=== PATIENT | male | born 1970 | race Caucasian/White ===

== ENCOUNTER 2018-02-02 06:53 | Emergency (ER) | payer OTHER ==
[~2018-02-02] VITALS: Ht 185.4 cm; Wt 63.5 kg
[~2018-02-02 06:53] MED LIST: ASPIR 8181 MG PO; ATORVASTATIN CA40 MG PO; CARVEDILOL3.125 MG PO; EFFIENT10 MG PO; LISINOPRIL2.5 MG PO; NICOTINE TRANSD21 M1 TRANSDERM; NITROSTAT0.4 M1 SL
[2018-02-02 08:14] VITALS: BP 125/80
== END 2018-02-02 08:15 | disposition home or self-care (01) ==
LOC: M.ERS 06:53
DX: S61.216A Laceration without foreign body of right little finger without damage to nail, initial encounter (principal); F17.210 Nicotine dependence, cigarettes, uncomplicated; W23.0XXA Caught, crushed, jammed, or pinched between moving objects, initial encounter; Y93.89 Activity, other specified; Y92.89 Other specified places as the place of occurrence of the external cause; Y99.8 Other external cause status

== ENCOUNTER 2018-05-02 13:44 | Inpatient (IN) | payer OTHER ==
[~2018-05-02] VITALS: Ht 185.4 cm; Wt 63.0 kg
[2018-05-02 13:48] VITALS: BP 118/77
[2018-05-02 14:26] LABS: ABSOLUTE BASOPHILS 0.1 thou/uL (0.0-0.2); ABSOLUTE EOSINOPHILS 0.1 thou/uL (0.0-0.7); ABSOLUTE LYMPHOCYTES 2.5 thou/uL (0.8-5.3); ABSOLUTE MONOCYTES 0.8 thou/uL (0.0-1.2); ABSOLUTE NEUTROPHILS 5.5 thou/uL (1.6-8.1); BASOPHILS 1.2 %; EOSINOPHILS 1.4 %; HEMATOCRIT 44.5 % (42.0-52.0); HEMOGLOBIN 15.1 gm/dL (14.0-18.0); LYMPHOCYTES 27.4 %; MCH 32.7 pg (26.0-34.0); MCV 96.1 fL (80.0-100.0); MONOCYTES 9.1 %; MPV 8.5 fl. (7.2-11.1); NUCLEATED RBCS 0 /100WBC; PLATELET COUNT* 194 thou/uL (150-400); POLYS 60.9 %; RBC 4.63 mil/uL (4.50-6.00); RDW-CV 14.2 % (10.5-14.5)
[2018-05-02 14:32] LABS: URINE BILIRUBIN NEGATIVE (Negative); URINE BLOOD NEGATIVE (Negative); URINE CLARITY CLEAR; URINE COLOR YELLOW; URINE GLUCOSE-RANDOM NEGATIVE (Negative); URINE KETONES NEGATIVE (Negative); URINE LEUKOCYTES-REFLEX NEGATIVE (Negative); URINE NITRITE-REFLEX NEGATIVE (Negative); URINE PROTEIN NEGATIVE (Negative); URINE SPECIFIC GRAVITY >= 1.030 (1.005-1.030); URINE UROBILINOGEN 0.2 E.U./dl (0.2-1.0)
[2018-05-02 14:36] LABS: CALCIUM 8.9 mg/dL (8.5-10.1); CREATININE 0.9 mg/dL (0.6-1.3); POTASSIUM 3.6 mmol/L (3.5-5.1)
[2018-05-02 14:47] LABS: ALBUMIN 4.1 g/dL (3.4-5.0); TOTAL BILIRUBIN 0.4 mg/dL (<0.1-1.0); TOTAL PROTEIN 7.9 g/dL (6.4-8.2); TROPONIN-I LEVEL 0.1 ng/mL (<0.06)
--- NOTE | 2018-05-02 18:14 | NUR ---
PT IS EATING DINNER TRAY
[2018-05-02 22:40] VITALS: BP 103/65
[2018-05-02 22:52] VITALS: BP 108/66
[2018-05-03] VITALS (12 sets, daily range): BP systolic 91–1100; BP diastolic 56–76
--- NOTE | 2018-05-03 07:49 | NUR ---
PT ADMITTED TO ROOM 207 DURING THIS SHIFT; VSS, A+OX4, REPORTS ABD PAIN, SKIN INTACT, UP AD NATHALIA. HE IS ABLE TO COMMUNICATE HIS NEEDS TO STAFF EFFECTIVELY. CURRENT PAIN MEDICATION REGIMEN HAS BEEN ADEQUATE FOR CONTROLLING HIS PAIN SOME OF THE TIME; MD WAS PAGED AND ORDERS RECEIVED. HE HAS BEEN NPO SINCE MIDNIGHT FOR A CARDIOLOGY CONSULT TODAY.
[2018-05-03 10:01] LABS: ANION GAP 7 mmol/L (7-16); BUN 13 mg/dL (7-18); CALCIUM 8.3 mg/dL (8.5-10.1); CHLORIDE 104 mmol/L (98-107); CHOLESTEROL 153 mg/dL (<200); CO2 27 mmol/L (21-32); CREATININE 0.8 mg/dL (0.6-1.3); GLUCOSE 86 mg/dL (70-99); HDL CHOLESTEROL 57 mg/dL (>40); LDL CHOLESTEROL 87 mg/dL (<100); SODIUM 138 mmol/L (136-145); TC:HDL 2.7 Ratio (Not establshd); TRIGLYCERIDE 47 mg/dL (<150); VLDL 9 mg/dL (<40)
[2018-05-03 10:02] LABS: SERUM ASSESSMENT Clear
--- NOTE | 2018-05-03 11:20 | EKG ---
[place] [address] ELECTROCARDIOGRAM REPORT Name: JIM VENCES Room: [address] ADM IN .R.#: [id number] Admission: 05/02/18 Attend Phys: Mady Wong Discharge: Date of : 66 Report #: [id number] THIS REPORT FOR: //name// [facility] ED Test Date: 2018-05-02 Test Time: 14:28:13 Pat Name: JIM VENCES Department: Room: [facility] Gender: M Locks Inspector: TAYLA : 1970 Requested By: Francie Cantu Order Number: [id number] MD: Simon Hagen Measurements Intervals [place] Rate: 75 P: 79 IA: 141 QRS: 26 QRSD: 114 T: 46 QT: 394 QTc: 441 Interpretive Statements Sinus rhythm Probable left atrial enlargement Borderline intraventricular conduction delay RSR' in V1 or V2, right VCD or RVH Borderline ST elevation, anterior leads Compared to ECG 02/09/2017 07:50:53 Right ventricular hypertrophy now present Sinus bradycardia no longer present ST (T wave) deviation still present Electronically Signed On 05-03-2018 11:20:49 CNA PER DIEM by Simon Hagen [email or web address] <ELECTRONICALLY SIGNED> By: Simon Hagen MD, [facility] 05/03/18 1120 1428 1428 Simon Hagen MD, FAC /EPI
--- NOTE | 2018-05-03 11:21 | EKG ---
[place] [address] ELECTROCARDIOGRAM REPORT Name: JIM VENCES Room: [address] ADM IN .R.#: [id number] Admission: 05/02/18 Attend Phys: Mady Wong Discharge: Date of : 66 Report #: [id number] THIS REPORT FOR: //name// [facility] ED Test Date: 2018-05-02 Test Time: 16:56:57 Pat Name: JIM VENCES Department: Room: [facility] Gender: Compression Molding Machine Operator: Rodolfo [place] : 1970 Requested By: Francie Cantu Order Number: [id number] MD: Simon Hagen Measurements Intervals [place] Rate: 52 P: 73 [place]: 143 QRS: 33 QRSD: 111 T: 24 QT: 429 QTc: 399 Interpretive Statements Sinus rhythm RSR' in V1 or V2, right VCD or RVH Borderline ST elevation, anterior leads Compared to ECG 02/09/2017 07:50:53 Right ventricular hypertrophy now present Sinus bradycardia no longer present ST (T wave) deviation still present Electronically Signed On 05-03-2018 11:21:23 BELT WORKER by Simon Hagen [email or web address] <ELECTRONICALLY SIGNED> By: Simon Hagen MD, [facility] 05/03/18 1121 1656 1656 Simon Hagen MD, FAC /EPI
--- NOTE | 2018-05-03 11:22 | EKG ---
[place] [address] ELECTROCARDIOGRAM REPORT Name: JIM VENCES Room: [address] ADM IN M.R.#: [id number] Admission: 05/02/18 Attend Phys: Mady Wong Discharge: Date of : 66 Report #: [id number] THIS REPORT FOR: //name// [facility] Test Date: 2018-05-03 Test Time: 08:20:38 Pat Name: JIM VENCES Department: Room: [address] Gender: M Veterinary Anatomist: : 1970 Requested By: Melissa Grimaldo Order Number: [id number] [place] MD: Simon Hagen Measurements Intervals [place] Rate: 54 P: 71 AR: 142 QRS: 20 QRSD: 109 T: -15 QT: 477 QTc: 453 Interpretive Statements Sinus rhythm RSR' in V1 or V2, probably normal variant Borderline T abnormalities, inferior leads ST elev, probable normal early repol pattern Compared to ECG 02/09/2017 07:50:53 T-wave abnormality now present Sinus bradycardia no longer present ST (T wave) deviation still present Electronically Signed On 05-03-2018 11:22:08 SUPERVISOR INSTRUMENT MECHANICS by Simon Hagen [email or web address] <ELECTRONICALLY SIGNED> By: Simon Hagen MD, [facility] 05/03/18 1122 9 9 Simon Hagen MD, FACC /EPI
--- NOTE | 2018-05-03 13:27 | NUR ---
Pt out of room for cath, will f/u later
--- NOTE | 2018-05-03 14:00 | NUR ---
Nutrition: Consult for low body wt. Pt weighs 139#, BMI 18.4. Usual wt, per [employer], is 145#. H/o OK. Albumin 4.1. Not a lot of info on pt, and pt was not in room at time of attempted visit, 13:30. Pt was eating well prior to NPO status. Recommend andvancing to goal of heart healthy diet once pt is clinically able. Will follow for diet advancement, po intake, wt, labs, possible need for supplement, 05/05/18.
--- NOTE | 2018-05-03 20:08 | NUR ---
ASSUMED PT CARE [id number], FULL ASSESMENT DONE CHARTED. PT A/O X4, C/O CHEST/ABDOMEN PAIN, PT WENT FOR CATH THIS AM, RETURNED TO ROOM 207 AT APPROX 1645. PT HAS RADIAL CLOSURE DEVISE TO RIGHT WRIST AND CLOSURE DEVICE TO RIGHT GROIN. PT WAS INSTRUCTED TO LAY FLAT FOR AN HOUR, VS OBTAINED, SB ON THE MONITOR. PTS WRIST PRESSURE DECRESASED AT APPROX 1855 6 CC'S HAD BED REMOVED, AT APPROX 1915 PT REPORTED BLEEDING FROM WRIST, 6 CC'S AIR REPLACED AND PT EDUCATED TO KEEP ARM STILL. PTS GROIN HAS SMALL AMOUT OF FRESH BLOOD, DR FARLEY IN TO SEE PT AT DINNERTIME AND WAS INFORMED OF BLEEDING. PT EDUCATED MULTIPLE TIMES ON THE IMPORTANCE OF KEEPING STILL AND ON BEDREST UNTIL LATER TONIGHT. PT VERBALIZED UNDERSTANDING. REPORT GIVEN TO LUISITO LOCO.
[2018-05-04 04:00] VITALS: BP 125/63
[2018-05-04 05:51] LABS: HEMATOCRIT 41.5 % (42.0-52.0); HEMOGLOBIN 14.1 gm/dL (14.0-18.0); MCH 32.7 pg (26.0-34.0); MCV 96.1 fL (80.0-100.0); RBC 4.32 mil/uL (4.50-6.00); RDW-CV 14.1 % (10.5-14.5); WBC 9.1 thou/uL (4.0-11.0)
[2018-05-04 06:11] LABS: ALBUMIN 3.2 g/dL (3.4-5.0); CALCIUM 8.3 mg/dL (8.5-10.1); CREATININE 0.8 mg/dL (0.6-1.3); TOTAL BILIRUBIN 0.5 mg/dL (<0.1-1.0); TOTAL PROTEIN 6.4 g/dL (6.4-8.2); TROPONIN-I LEVEL 0.16 ng/mL (<0.06)
--- NOTE | 2018-05-04 06:49 | CON ---
[address] [address] CONSULTATION Name: JIM VENCES Room: [address] IN .R.#: [id number] Admission: 05/02/18 Attend Phys: Mady Wong Discharge: Date of : 66 Report #: [id number] THIS REPORT FOR: //name// CC: KIRSTIE physician/PCP Melissa Grimaldo DATE OF SERVICE: 05/03/2018 PCP: None. PRIMARY BUFFING WHEEL OPERATOR: Dr. Mann. HISTORY OF PRESENT ILLNESS: The patient is a 48-year-old male with a history of coronary artery disease who has had two separate episodes of 20 minutes of chest discomfort very similar to when he had a PCI in 2017. One occurred while he was watching TV approximately 48 hours ago. It was left-sided. It did not resolve after 15 minutes and he was going to take nitro and go to the Emergency Room, but then it went away and he did not do anything. He then had another episode, which was more epigastric in nature, but radiated up to his left chest wall. This lasted also 10-15 minutes long and he presented to the Emergency Room. His ECG demonstrated a sinus bradycardia with repolarization abnormality. However, his subsequent troponin levels were mildly abnormal in the 0.1-0.15 range. He has had both of these episodes at rest and they felt similar to when he had a PCI for an occluded circumflex coronary artery. The patient also had a residual diagonal stenosis in the 70-80% range, but this had been managed medically. He has because of lack of insurance only been taking baby aspirin, has been off of Plavix and cholesterol and blood pressure drugs. PAST MEDICAL HISTORY: His other past medical history is significant for tobacco abuse syndrome and hyperlipidemia. PAST SURGICAL HISTORY: Mandibular fracture, leg surgery and he has had abdominal surgery. SOCIAL HISTORY: He is an everyday smoker. He works part-time at [employer]. ALLERGIES: He has no known drug allergies. REVIEW OF SYSTEMS: GENERAL: No fevers or chills. PULMONARY: Positive wheezing, positive cough. CARDIOVASCULAR: Positive chest pain. GASTROINTESTINAL: No nausea, [place] [address] CONSULTATION Name: JIM VENCES Room: [address]#: [id number] Admission: 05/02/18 Attend Phys: Mady Wong Discharge: Date of : 66 Report #: [id number] GENITOURINARY: No dysuria or hematuria. NEUROLOGIC: Denies numbness, weakness or visual changes. SKIN: No rashes. HOME MEDICATIONS ON DISCHARGE: Were supposed to be aspirin 81 mg daily, Effient, atorvastatin 40 mg daily, Coreg 3.125 mg p.o. b.i.d., Zestril 2.5 mg daily and nitroglycerin p.r.n. FAMILY HISTORY: Noncontributory. PHYSICAL EXAMINATION: VITAL SIGNS: Blood pressure is 102/69, pulse is 65, temperature is 36.6 and respiratory rate 18. GENERAL: This is a thin adult male who is alert, oriented and in no apparent distress. HEENT: Eyes are intact. No facial asymmetry. Dentition is poor in the mouth. NECK: Supple. There is no jugular venous distention. Upstrokes are normal. There is no carotid bruit. CARDIOVASCULAR: Regular. I cannot hear a murmur. LUNGS: Clear to auscultation bilaterally. ABDOMEN: Soft and nontender. EXTREMITIES: Show no peripheral edema. SKIN: Warm and dry. LABORATORY DATA: Electrocardiogram on initial ECG shows sinus rhythm with T-wave inversion in lead 3 and aVF with normal ST segments and incomplete right bundle branch block. Subsequent ECG showed similar findings although the T-wave inversion was somewhat resolved on a subsequent study. Hemoglobin is 15.1, white blood cell count is 9.0 and platelet count 194,000. Troponin I is 0.13 and 0.14 and 0.13 on admission. Chest x-ray showed no acute cardiopulmonary process. Abdominal pelvis CT shows moderate atherosclerosis of the abdominal aorta and iliacs and no evidence of obstruction or free air. IMPRESSION: 1. Unstable angina. His symptoms are concerning for an evolving angina pattern. He has subtle ECG abnormalities, which are evolving and a mildly elevated cardiac troponin level in the setting of likely noncompliance with dual antiplatelet therapy from his PCI approximately a year ago. Based on this presentation, I recommended an evaluation with heart catheterization. The patient elects to proceed. 2. Coronary artery disease. He has residual disease in the diagonal, which could be the culprit vessel. 3. Hypertension. Would recommend restarting medical therapy. 4. Hyperlipidemia. Recommend restarting therapy. [address] [address] CONSULTATION Name: JIM VENCES Room: [address] IN M.R.#: [id number] Admission: 05/02/18 Attend Phys: Mady Wong Discharge: Date of : 66 Report #: [id number] 5. Tobacco abuse. Cessation was recommended again and the patient admits he will try harder. <ELECTRONICALLY SIGNED> By: Iron Gant MD, FACC 05/04/18 0649 0902 0127Simon Hagen MD, FACC /nt
--- NOTE | 2018-05-04 06:57 | NUR ---
RECEIVED REPORT AND ASSUMED CARE AT 1900. VSS. CARDIAC MONITORING IN PLACE. ASSESSMENT COMPLETED CHARTED. DISCUSSED PLAN OF CARE WITH PT, VERBALZIED UNDERSTADNING. PT ON BEDREST, POST CATH. BED LOCKED, BED ALARM ON. AFTER BEDREST PT UP AD NATHALIA ON RA. GROIN SITE DRESSING CHANGED. HOURLY ROUNDING COMPLETED AND ALL NEEDS MET. PT REPORTED PAIN, PRN MEDICATION ADMIN PER EMAR.
--- NOTE | 2018-05-04 07:25 | NUR ---
CHANGE OF SHIFT BEDSIDE REPORT GIVEN PATIENT SEEN IN BED RSTING ASSUMED PATIENT CARE
[2018-05-04 08:00] VITALS: BP 105/64
[2018-05-04] MEDS ORDERED: EFFIENT10 MG PO (09:03)
[2018-05-04] MEDS ORDERED: PEPCID20 MG PO (09:03)
[2018-05-04] MEDS ORDERED: NITROGLYCERIN0.4 MG SUBLING (09:56)
[2018-05-04] MEDS ORDERED: ATORVASTATIN CA40 MG PO (09:58)
[2018-05-04 10:08] VITALS: BP 105/64
--- NOTE | 2018-05-04 11:33 | EKG ---
[place] [address] ELECTROCARDIOGRAM REPORT Name: JIM VENCES Room: [address] ADM IN M.R.#: [id number] Admission: 05/02/18 Attend Phys: Mady Wong Discharge: Date of : 66 Report #: [id number] THIS REPORT FOR: //name// [facility] Test Date: 2018-05-03 Test Time: 17:47:29 Pat Name: JIM VENCES Department: Room: [address] Gender: M Banking Center Manager: MONI : 1970 Requested By: Hunter Mann Order Number: [id number] Richie MD: Jesse Nj Measurements Intervals [place] Rate: 80 P: 85 IA: 131 QRS: 32 QRSD: 111 T: 28 QT: 405 QTc: 468 Interpretive Statements Sinus rhythm nonspecific st changes RSR' in V1 or V2, probably normal variant Baseline wander in lead(s) II,aVF Compared to ECG 05/03/2018 08:20:38 rate increased Electronically Signed On 05-04-2018 11:33:13 DEBONER by Jesse Nj [email or web address] <ELECTRONICALLY SIGNED> By: Jesse Nj MD, FACC 05/04/18 1133 1747 1747 Jesse Nj MD, [facility] /EPI
[2018-05-04 11:40] VITALS: BP 105/64
--- NOTE | 2018-05-04 11:42 | EKG ---
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 Worker: : 1970 Requested By: Hunter Mann Order Number: [id number] [place] MD: Jesse Nj Measurements Intervals [place] Rate: 55 P: 73 [place]: 128 QRS: 34 QRSD: 109 T: 12 QT: 454 QTc: 435 Interpretive Statements Sinus bradycardia RSR' in V1 or V2, probably normal variant ST elev, probable normal early repol pattern Compared to ECG 05/03/2018 08:20:38 rate slowed Electronically Signed On 05-04-2018 11:42:08 FURNISHINGS CONSERVATOR by Jesse Nj [email or web address] <ELECTRONICALLY SIGNED> By: Jesse Nj MD, FACC 05/04/18 1142 0827 0827 Jesse Nj MD, [facility] /EPI
--- NOTE | 2018-05-04 13:00 | NUR ---
PATIENT DISCHARGED TO HOME ALL DC INFORMATION GIVEN, ACKNOLEDGED, AND SIGNED PAPERWORK COPIES GIVEN IV AND HEART MONITOR REMOVED PERSONAL BELONGINGS RETURNED PATIENT ASSISTED OUT VIA WC GOOD CONDITION TO WAITING CAR
[2018-05-04 13:10] VITALS: BP 105/64
--- NOTE | 2018-05-10 14:08 | CARD ---
[address] [address] CARDIAC CATH REPORT Name: VANGIEJIM E Room: [address] IN [facility]#: [id number] Admission: 05/02/18 Attend Phys: Mady Wong Discharge: 05/04/18 Date of : 66 Report #: [id number] THIS REPORT FOR: //name// APPROVED REPORT Study performed: 05/03/2018 12:57:31 Patient Details Patient Status: In-Patient Room #: 206 The patient is a 48 year-old male Event Personnel Simon Hagen Experimental Electronics Developer, Padmaja Miles RN Model Maker Scale, La Lopez Monitor, Raul Ruiz (R) Scrub, Michelle Downs RTCassidy Scrub, Hunter Mann Director Peoplesoft, Beronica Cash RN Model Maker Scale Dr. Hagen Procedures Performed Art Access - R radial artery Art Access - R femoral artery* Left Heart Cath w/or w/o Coronaries [id number] [facility] GAL Place w/wo Plasty Single CIRC [id number]; PCI of chronic total occlusion of the proximal circumflex Indication Chest pain Risk Factors Family History, Hypercholesterolemia, Hypertension Admission/Lab Medications/Medications given during procedure Aspirin, Heparin Unfract. Procedure Narrative The patient was brought electively to the Cardiac Catheterization Laboratory and was prepped and draped in a sterile manner. The right wrist was infiltrated with 2% Lidocaine subcutaneous anesthesia. A Slender Glidesheath sheath was inserted into the right radial artery. Coronary angiography was performed using coronary diagnostic catheters. The right coronary system was accessed and visualized with a [place] 4.0 6fr catheter. The left coronary system was accessed and visualized with a [place] 4.0 6fr catheter. The left ventricle was accessed and visualized with a PC: Pig 6fr catheter. Left ventricular/Aortic Valve gradient assessed via catheter pullback. Left ventriculogram was performed in EASTMAN projection. Pre-demployment femoral angiogram was performed . Closure device [place] [address] CARDIAC CATH REPORT Name: JIM VENCES Room: [address]#: [id number] Admission: 05/02/18 Attend Phys: Mady Wong Discharge: 05/04/18 Date of : 66 Report #: [id number] 6 Fr Angioseal STS 6Fr. The patient tolerated the procedure well and there were no complications associated with the procedure. RFA was used for coronary intervention with Dr. Mann. Intraoperative Conscious Sedation Sedation start time: 13:54 Case end Time: 16:05 Fentanyl 100 mcg Versed 8 mg Fluoro Time: 42.3 minutes Dose: DAP 922151 cGycm2 1877.58 mGy Contrast Type and Amount: Visipaque 625 ml Coronary Angiography The patient's coronary anatomy is left dominant. Diagnostic Cath Left Main 20% ostial LAD 75% mid vessel stenosis with 40% proximal narrowing Diagonal 1 80% proximal stenosis Circumflex Chronic total occlusion and partiall filled with collaterals (intracoronary), in-stent -very long stented region OM1 small severely diseased, 80% diffusely OM2 sub totally occluded, small vessel Right Coronary small sized, non dominant, diffuse 50-60% mid body Left Ventriculography The left ventricle is normal in size with reduced contractility. The left ventricular ejection fraction is estimated to be 50%. Left ventricular wall motion abnormalities are present. There is no mitral insufficiency. mid anterior-lateral hypokinesis IVUS Intravascular Ultrasound was performed on the mid right coronary arterymid circumflex artery segment vessel. IVUS Findings Mini Trek RX 1.2X8 Hemodynamics The aortic pressure is 106/71 mmHg with a mean of mmHg. The left ventricular pressure is 102/6 mmHg with a mean of mmHg. The left ventricular end diastolic pressure is 8 mmHg. There was no gradient across the aortic [place] [address] CARDIAC CATH REPORT Name: JIM VENCES Room: [address] IN M.R.#: [id number] Admission: 05/02/18 Attend Phys: Mady Wong Discharge: 05/04/18 Date of : 66 Report #: [id number] PCI Technique Lesion Anticoagulation was achieved with Heparin. Patient was preloaded with Heparin IV 7500 units. Percutaneous coronary intervention was performed on the mid circumflex artery segment. The lesion stenosis prior to intervention was 100% with MIGUE 0 flow. A 6F XB LAD 3.5 Guide Catheter was used to engage the LCA ostium. A IG: Fielder XT 300cm Interventional Guidewire was used to cross the lesion. BALLOON DILATION A Balloon catheter Mini Trek OTW 1.2 X 8 was inserted and inflated up to 8.00atm for 8seconds. Additional Inflation: 10.00atm for 9seconds. STENT DEPLOYMENT A drug-eluting stent Zaid RX Stent 2.0X26mm 2.25x34 2.5x15 was inserted and inflated up to 10.00atm for 5seconds. Additional Inflation: 10.00atm for 9seconds. Final angiography reveals 10 % stenosis with MGIUE flow. COMMENTS I was able to recanalize the chronic total occlusion of the circumflex with an 014 Fielder wire through a support catheter. I Then successively dilated this with progressively larger balloons and was ultimately able to place 3 drug-eluting stents from distal to proximal in the segment from distal to proximal circumflex PCI Technique Lesion Percutaneous coronary intervention was performed on the mid right coronary arterymid circumflex artery segment. BALLOON DILATION A Balloon catheter Mini Trek RX 1.2X8 was inserted and inflated up to 14.00atm for 8seconds. Additional Inflation: 14.00atm for 6seconds. Additional Inflation: 14.00atm for 5seconds. With Multiple Inflations 0f 14 ATMs PCI Technique Lesion 2 Percutaneous Coronary Intervention was performed on the proximal circumflex artery segment. Stent Deployment A drug-eluting stent [place] RX Stent 2.17Q49qh was inserted and inflated up to 14atm for 14seconds. Additional Inflation: 16.00atm for 6seconds. [address] [address] CARDIAC CATH REPORT Name: JIM VENCES Room: [address] [facility].#: [id number] Admission: 05/02/18 Attend Phys: Melissa Brand Dillan Mady Discharge: 05/04/18 Date of : 66 Report #: [id number] PCI Technique Lesion Percutaneous coronary intervention was performed on the mid circumflex artery segment. BALLOON DILATION A Balloon catheter Mini Trek RX 1.5 X 12 was inserted and inflated up to 16.00atm for 5seconds. Additional Inflation: 16.00atm for 4seconds. Additional Inflation: 16.00atm for 3seconds. PCI Technique Lesion 3 Percutaneous coronary intervention was performed on the proximal circumflex artery segment. Stent Deployment A drug-eluting stent Zaid RX Stent 2.5X15mm was inserted and inflated up to 12atm for 7seconds. Additional Inflation: 15atm for 9seconds. Additional Inflation: 14atm for 6seconds. PCI Technique Lesion Percutaneous coronary intervention was performed on the mid circumflex artery segment. BALLOON DILATION A Balloon catheter Mini Trek RX 2.0 X 15 was inserted and inflated up to 12.00atm for 8seconds. Additional Inflation: 12.00atm for 4seconds. Additional Inflation: 12.00atm for 7seconds. Conclusion 1. In-stent chronic total occlusion of long stented,large dominant left circumflex 2. severe disease of LAD and diagonal with 75% mid LAD stenosis and 80% proximal diagonal stenosis 3. low normal EF. 4. Successful percutaneous coronary intervention of a chronic total occlusion of the proximal circumflex with deployment of 3 drug-eluting stents from distal to proximal with 10% residual narrowing following stent deployment and MIGUE-3 flow to the distal vessel. Recommendations Smoking Cessation Cardiac Rehabilitation Referral Aggressive Medical Therapy PCI [facility] [address] [place] [address] CARDIAC CATH REPORT Name: JIM VENCES Room: [address] IN .R.#: [id number] Admission: 05/02/18 Attend Phys: Mady Wong Discharge: 05/04/18 Date of : 66 Report #: [id number] Medications Administered Aspirin (any) Prasugrel Diagnostic Cath Approved by: Simon Hagen MD Date/Time: 05/10/2018 14:06:28 <ELECTRONICALLY SIGNED> By: Hunter Mann MD, FACC 05/10/18 1408 1408 1408Jolupe Mann MD, FACC /INF
== END 2018-05-04 13:30 | disposition home or self-care (01) | DRG 247 ==
LOC: M.ERS 13:44 → M.2W 16:48 → M.TBA-ER 16:48 → M.2W 22:55
PROVIDERS: Internal Medicine; Internal Medicine Cardiovascular Disease; Nurse Practitioner Family; ADMIT Internal Medicine
DX: I25.110 Atherosclerotic heart disease of native coronary artery with unstable angina pectoris (principal); E78.5 Hyperlipidemia, unspecified; I10 Essential (primary) hypertension; K42.9 Umbilical hernia without obstruction or gangrene; K27.9 Peptic ulcer, site unspecified, unspecified as acute or chronic, without hemorrhage or perforation; K21.9 Gastro-esophageal reflux disease without esophagitis; F17.210 Nicotine dependence, cigarettes, uncomplicated; Z95.5 Presence of coronary angioplasty implant and graft; Z79.82 Long term (current) use of aspirin; Z71.6 Tobacco abuse counseling; Z91.19 Patient's noncompliance with other medical treatment and regimen

== ENCOUNTER 2018-06-09 15:06 | Emergency (ER) | payer OTHER ==
[~2018-06-09] VITALS: Ht 185.4 cm; Wt 65.8 kg
[~2018-06-09 15:06] MED LIST changes: +NITROGLYCERIN0.4 MG SUBLING; +PEPCID20 MG PO
[2018-06-09 16:13] LABS: ABSOLUTE BASOPHILS 0.1 thou/uL (0.0-0.2); ABSOLUTE EOSINOPHILS 0.4 thou/uL (0.0-0.7); ABSOLUTE LYMPHOCYTES 2.2 thou/uL (0.8-5.3); ABSOLUTE MONOCYTES 0.7 thou/uL (0.0-1.2); BASOPHILS 1.2 %; HEMATOCRIT 44.9 % (42.0-52.0); HEMOGLOBIN 15.3 gm/dL (14.0-18.0); LYMPHOCYTES 29.8 %; MCH 32.8 pg (26.0-34.0); MCV 96.6 fL (80.0-100.0); MONOCYTES 9.6 %; MPV 8.6 fl. (7.2-11.1); NUCLEATED RBCS 0 /100WBC; PLATELET COUNT* 184 thou/uL (150-400); POLYS 53.4 %; RBC 4.65 mil/uL (4.50-6.00); RDW-CV 13.8 % (10.5-14.5); WBC 7.4 thou/uL (4.0-11.0)
[2018-06-09 16:25] LABS: ANION GAP 6 mmol/L (7-16); BUN 14 mg/dL (7-18); CALCIUM 9.2 mg/dL (8.5-10.1); CHLORIDE 102 mmol/L (98-107); CO2 30 mmol/L (21-32); CREATININE 0.9 mg/dL (0.6-1.3); GLUCOSE 91 mg/dL (70-99); SODIUM 138 mmol/L (136-145)
[2018-06-09 16:26] LABS: APTT 27.5 Seconds (25.0-31.3); INR 1.1; PROTIME 11.4 Seconds (9.20-11.50)
[2018-06-09 16:33] LABS: ALKALINE PHOSPHATASE 71 U/L (46-116); SGOT 17 U/L (15-37); SGPT 21 U/L (30-65); TOTAL BILIRUBIN 0.3 mg/dL (<0.1-1.0); TOTAL PROTEIN 7.9 g/dL (6.4-8.2); TROPONIN-I LEVEL <0.06 ng/mL (<0.06)
[2018-06-09] MEDS ORDERED: MEDROLDOSEPACK PO (18:51)
[2018-06-09] MEDS ORDERED: NORCO 5-325 TA1 EACH PO (18:51)
[2018-06-09 19:07] VITALS: BP 124/81
--- NOTE | 2018-06-10 14:53 | EKG ---
[place] [address] ELECTROCARDIOGRAM REPORT Name: JIM VENCES Room: [facility]#: [id number] Admission: 06/09/18 Attend Phys: Discharge: 06/09/18 Date of : 66 Report #: [id number] THIS REPORT FOR: //name// [facility] ED Test Date: 2018-06-09 Test Time: 15:24:54 Pat Name: JIM VENCES Department: Room: Gender: Manager Material: Rosa M CONWAY : 1970 Requested By: Puma Patricio Order Number: [id number] MD: Hunter Mann Measurements Intervals [place] Rate: 66 P: 77 [place]: 129 QRS: 26 QRSD: 115 T: 60 QT: 416 QTc: 436 Interpretive Statements Sinus rhythm Nonspecific intraventricular conduction delay ST elev, probable normal early repol pattern Compared to ECG 05/04/2018 08:27:30 Intraventricular conduction delay now present Sinus bradycardia no longer present ST (T wave) deviation still present Electronically Signed On 06-10-2018 14:53:01 STATE'S ATTORNEY by Hunter Mann [email or web address] <ELECTRONICALLY SIGNED> By: Hunter Mann MD, FAC 06/10/18 1453 1524 1524 Hunter Mann MD, [facility] /EPI
--- NOTE | 2018-06-10 14:56 | EKG ---
[place] [address] ELECTROCARDIOGRAM REPORT Name: JIM VENCES Room: [facility]#: [id number] Admission: 06/09/18 Attend Phys: Discharge: 06/09/18 Date of : 66 Report #: [id number] THIS REPORT FOR: //name// [facility] ED Test Date: 2018-06-09 Test Time: 17:47:28 Pat Name: JIM VENCES Department: Room: Gender: Tufting Machine Fixer: Rosa M CONWAY : 1970 Requested By: Ysabel Franco Order Number: [id number] MD: Hunter Mann Measurements Intervals [place] Rate: 52 P: 67 [place]: 138 QRS: 29 QRSD: 113 T: 50 QT: 443 QTc: 412 Interpretive Statements Sinus rhythm RSR' in V1 or V2, right VCD Left ventricular hypertrophy Early repolarization Compared to ECG 05/04/2018 08:27:30 Left ventricular hypertrophy now present Sinus bradycardia no longer present ST (T wave) deviation still present Electronically Signed On 06-10-2018 14:55:54 SIGNAL MECHANIC by Hunter Mann [email or web address] <ELECTRONICALLY SIGNED> By: Hunter Mann MD, FACC 06/10/18 1455 1747 1747 Hunter Mann MD, FAC /EPI
== END 2018-06-09 19:08 | disposition home or self-care (01) ==
LOC: M.ERS 15:06
PROVIDERS: Physician Assistant
DX: M54.12 Radiculopathy, cervical region (principal); M25.511 Pain in right shoulder; F17.210 Nicotine dependence, cigarettes, uncomplicated; Z95.5 Presence of coronary angioplasty implant and graft

== ENCOUNTER 2019-01-20 19:44 | Inpatient (IN) | payer OTHER ==
[~2019-01-20] VITALS: Ht 185.4 cm; Wt 60.8 kg
[~2019-01-20 19:44] MED LIST changes: +LIPITOR40 MG PO; +MEDROLDOSEPACK PO; +NORCO 5-325 TA1 EACH PO
[2019-01-20 19:46] VITALS: BP 126/79
[2019-01-20] MEDS ORDERED: EFFIENT10 MG PO (19:55)
[2019-01-20 20:06] LABS: ABSOLUTE BASOPHILS 0.1 thou/uL (0.0-0.2); ABSOLUTE EOSINOPHILS 0.4 thou/uL (0.0-0.7); ABSOLUTE LYMPHOCYTES 2.8 thou/uL (0.8-5.3); ABSOLUTE MONOCYTES 0.8 thou/uL (0.0-1.2); ABSOLUTE NEUTROPHILS 4.5 thou/uL (1.6-8.1); BASOPHILS 0.9 %; EOSINOPHILS 4.5 %; HEMATOCRIT 43.7 % (42.0-52.0); HEMOGLOBIN 14.9 gm/dL (14.0-18.0); LYMPHOCYTES 33.2 %; MCH 32.6 pg (26.0-34.0); MCHC 34.1 g/dL (28.0-37.0); MCV 95.7 fL (80.0-100.0); MONOCYTES 8.9 %; MPV 8.5 fl. (7.2-11.1); NUCLEATED RBCS 0 /100WBC; PLATELET COUNT* 201 thou/uL (150-400); POLYS 52.5 %; RBC 4.57 mil/uL (4.50-6.00); RDW-CV 14.3 % (10.5-14.5); WBC 8.6 thou/uL (4.0-11.0)
[2019-01-20 20:17] LABS: INR 1.1; PROTIME 10.8 Seconds (9.20-11.50)
[2019-01-20 20:23] LABS: ANION GAP 7 mmol/L (7-16); BUN 13 mg/dL (7-18); CALCIUM 9.7 mg/dL (8.5-10.1); CHLORIDE 104 mmol/L (98-107); CO2 30 mmol/L (21-32); CREATININE 0.9 mg/dL (0.6-1.3); GLUCOSE 108 mg/dL (70-99); SODIUM 141 mmol/L (136-145)
[2019-01-20 20:27] LABS: ALBUMIN 3.8 g/dL (3.4-5.0); ALKALINE PHOSPHATASE 72 U/L (46-116); LIPASE 198 U/L (73-393); NT-PRO BRAIN NAT PEPTIDE 543 pg/mL (<300); SGOT 19 U/L (15-37); SGPT 24 U/L (30-65); TOTAL BILIRUBIN 0.3 mg/dL (<0.1-1.0); TOTAL PROTEIN 7.5 g/dL (6.4-8.2); TROPONIN-I LEVEL <0.06 ng/mL (<0.06)
[2019-01-20 20:42] LABS: URINE BILIRUBIN NEGATIVE (Negative); URINE BLOOD NEGATIVE (Negative); URINE CLARITY CLEAR; URINE COLOR YELLOW; URINE GLUCOSE-RANDOM NEGATIVE (Negative); URINE KETONES NEGATIVE (Negative); URINE LEUKOCYTES-REFLEX NEGATIVE (Negative); URINE NITRITE-REFLEX NEGATIVE (Negative); URINE PROTEIN NEGATIVE (Negative); URINE SPECIFIC GRAVITY 1.025 (1.005-1.030); URINE UROBILINOGEN 0.2 E.U./dl (0.2-1.0)
[2019-01-20 20:49] LABS: AMP/METHAMP Negative (Negative); BARBITURATES Negative (Negative); BENZODIAZEPINES Negative (Negative); COCAINE Negative (Negative); METHADONE Negative (Negative); OPIATES Negative (Negative); PCP Negative (Negative); THC POSITIVE (Negative)
--- NOTE | 2019-01-20 22:25 | NUR ---
DR GRANT TO SEE PATIENT
[2019-01-20 22:30] VITALS: BP 93/59
[2019-01-20 22:45] VITALS: BP 112/68
[2019-01-21] VITALS (8 sets, daily range): BP systolic 95–125; BP diastolic 54–75
[2019-01-21] MEDS ORDERED: ASPIR 8181 MG PO (03:18)
[2019-01-21] MEDS ORDERED: NICOTINE TRANSD21 M1 TRANSDERM (03:19)
--- NOTE | 2019-01-21 06:05 | NUR ---
PATIENT PROGRESSING TOWARDS GOALS: PATIENT HAS DENIES CHEST PAIN SINCE ADMISSION TO FLOOR. PATIENT RESTING WELL THIS SHIFT. VSS ON 2L O2 NC. PATIENT UP INDEPENDENTLY WITH STEADY GAIT. NPO FOR CARDIOLOGY CONSULT. CALL LIGHT WITHIN REACH
--- NOTE | 2019-01-21 09:59 | NUR ---
Pt is A&O. Resides at home with his brother. Independent. Pt states that he has tried to get SSD, d/t "this is my 3rd heart attack," but states that his last ace was declined, plans to continue applying. No DME. No hx of HH or SNF. Cardiology following. No needs anticipated. Following.
--- NOTE | 2019-01-21 12:52 | EKG ---
[place] [address] ELECTROCARDIOGRAM REPORT Name: JIM VENCES Room: [address] ADM IN 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[place] : 1970 Requested By: Stefanie Calvo Order Number: [id number] MD: Jesse Nj Measurements Intervals [place] Rate: 72 P: 79 CO: 133 QRS: 39 QRSD: 113 T: 49 QT: 395 QTc: 433 Interpretive Statements Sinus rhythm Borderline intraventricular conduction delay RSR' in V1 or V2, right VCD or RVH ST elevation, consider early repolarization Compared to ECG 06/09/2018 17:47:28 Left ventricular hypertrophy no longer present Electronically Signed On 01-21-2019 12:52:17 CDT by Jesse Nj [email or web address] <ELECTRONICALLY SIGNED> By: Jesse Nj MD, [facility] 01/21/19 1252 50 50 Jesse Nj MD, [facility] /EPI
--- NOTE | 2019-01-21 13:02 | CARD ---
[address] [address] CARDIAC CATH REPORT Name: VANGIEJIM Latonya Room: [address] IN [facility]#: [id number] Admission: 01/20/19 Attend Phys: Rodolfo Cochran Discharge: Date of : 66 Report #: [id number] THIS REPORT FOR: //name// APPROVED REPORT Study performed: 01/21/2019 09:39:10 Patient Details Patient Status: In-Patient Room #: The patient is a 48 year-old male Event Personnel Jesse Nj Research Test Engine Operator, Solo Peguero, Ivette Carey RTR Monitor, Dariana Perez Wood Carving Lathe Operator, Estefanía Jack RN Monitor Procedures Performed Left Heart Cath w/or w/o Coronaries [id number] [facility] Indication Chest pain Risk Factors Coronary Artery Disease, Tobacco History () Previous Procedures/Diagnoses Previous PCI, Previous [facility] Procedure Narrative The patient was brought electively to the Cardiac Catheterization Laboratory and was prepped and draped in a sterile manner. The right wrist was infiltrated with 1% Lidocaine subcutaneous anesthesia. A Slender Glidesheath sheath was inserted into the RRA. Coronary angiography was performed using coronary diagnostic catheters. The right coronary system was accessed and visualized with a JR 4 6F catheter. The left coronary system was accessed and visualized with a JL 4 6F catheter. The left ventricle was accessed and visualized with a ANGLED PIG 6F catheter. Left ventricular/Aortic Valve gradient assessed via catheter pullback. Left ventriculogram was performed in EASTMAN projection. Closure device was deployed with a 6 Fr Vasc-Band Reg 24cm. The patient tolerated the procedure well and there were no complications associated with the procedure. There was no hematoma[place] [address] CARDIAC CATH REPORT Name: JIM VENCES Room: [address]#: [id number] Admission: 01/20/19 Attend Phys: Rodolfo Cochran Discharge: Date of : 66 Report #: [id number] Sedation start time: 1030 Case end Time: 1053 Fentanyl 25 mcg Versed 2 mg Fluoro Time: 2.2 minutes Dose: DAP 74827 cGycm2 372 mGy Contrast Type and Amount: Omnipaque 150 ml Coronary Angiography The patient's coronary anatomy is co- dominant. Diagnostic Cath Left Main 0% stenosis LAD 30% proximal stenosis Diagonal 1 40% mid stenosis Circumflex long stent noted throughout most of the AV groove that was completely occluded. The dominant circumflex and marginal branches filled by collaterals from both the LAD and RCA Right Coronary small co-dominent vessel had a 80% mid stenosis noted Left Ventriculography The left ventricular ejection fraction is estimated to be 40-45%. Left ventricular wall motion abnormalities are present. There is no mitral insufficiency. moderate hypokinesis noted of the inferior wall. Hemodynamics The aortic pressure is 89/50 mmHg with a mean of 68 mmHg. The left ventricular pressure is 93/8 mmHg with a mean of mmHg. The left ventricular end diastolic pressure is 10 mmHg. There was no gradient across the aortic valve upon pullback. Pullback from the left ventricle to the aorta revealed no gradient across the aortic valve. Conclusion 1. Chronically occluded long stent in the circumflex that filled by collaterals. 2. LVEF 40-45% [place] [address] CARDIAC CATH REPORT Name: JIM VENCES Room: [address] IN .R.#: [id number] Admission: 01/20/19 Attend Phys: Rodolfo Cochran Discharge: Date of : 66 Report #: [id number] Smoking Cessation [facility] <ELECTRONICALLY SIGNED> By: Jesse Nj MD, [facility]ACC 01/21/19 1302 1302 1302Dthor Nj MD, FACC /INF
--- NOTE | 2019-01-21 16:05 | NUR ---
ASSUMED CARE OF PT AROUND 0730 THIS AM. REFER TO ASSESSMENT. PT WENT TO INSURANCE CLAIM AUDITOR TODAY. TOLERATED PROCEDURE WELL. NO INTERVENTIONS WHILE IN INSURANCE CLAIM AUDITOR. RT RADIAL ACCESS. RADSTAT REMAINS TO SITE D/T BLEEDING FROM ACCESS SITE AND PT'S NONCOMPLIANCE WITH NO WEIGHT BEARING TO RT WRIST. DR. KAMINSKI AWARE. REPORTED PT'S ASYMPTOMATIC BRADYCARDIA WELL AND PO CARVEDILOL DC'D. MONITORING FREQUENTLY. ANTICIPATE DC HOME TOMORROW. NO OTHER CONCERNS AT THIS TIME. CLWR. WCTM.
[2019-01-22] VITALS: BP 112/72
[2019-01-22 04:00] VITALS: BP 123/73
[2019-01-22 04:57] LABS: CHOLESTEROL 141 mg/dL (<200); HDL CHOLESTEROL 62 mg/dL (>40); LDL CHOLESTEROL 68 mg/dL (<100); TC:HDL 2.3 Ratio (Not establshd); TRIGLYCERIDE 59 mg/dL (<150); VLDL 12 mg/dL (<40)
[2019-01-22 05:03] LABS: SERUM ASSESSMENT Clear
--- NOTE | 2019-01-22 07:06 | NUR ---
PATIENT PROGRESSING TOWARDS GOALS: DENIES CHEST PAIN AND DISCOMFORT THIS SHIFT. DID HAVE SOME RIGHT ARM NUMBNESS UPON WAKING THIS MORNING. STATED THAT HE MAY HAVE "SLEPT ON IT." REMOVED RADSTAT, NO BLEEDING NOTED. GOOD CAP REFILL IN HAND AND 2+ RADIAL PULSE. EKG OBTAINED-NO CHANGES. UPON REASSESSMENT, PATIENT STATES NUMBNESS HAS RESOLVED. CALL LIGHT WITHIN REACH
[2019-01-22 08:00] VITALS: BP 108/71
--- NOTE | 2019-01-22 08:00 | NUR ---
AM ASSESSMENT COMPLETE, DEFER TO COMPUTER CHARTING. 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 ALERT ORIENTED. DENIES CHEST PAIN, DIZZINESS, SOA AT THIS TIME. DRESSING TO RIGHT RADIAL S/P CATH SITE INTACT - SM AMT OF OLD DRIED DRAINAGE NOTED. ANXIOUS THIS AM, REASSURANCE GIVEN. CALL LIGHT WITHIN REACH, WILL CONTINUE TO MONITOR.
[2019-01-22] MEDS ORDERED: APAP650 PO (10:08)
[2019-01-22 10:13] VITALS: BP 108/71
--- NOTE | 2019-01-22 10:55 | CON ---
[address] [address] CONSULTATION Name: JIM VENCES Room: [address] IN .R.#: [id number] Admission: 01/20/19 Attend Phys: Rodolfo Cochran Discharge: Date of : 66 Report #: [id number] THIS REPORT FOR: //name// CC: KIRSTIE physician/PCP Shola Gilbert DATE OF SERVICE: 01/21/2019 CARDIOLOGY CONSULTATION HISTORY OF PRESENT ILLNESS: The patient is a 48-year-old single white male, who I was asked to see in the hospital after he complained of chest pain. The patient initially presented back in 01/2017 with chest pain. He was seen by my partner, Dr. Mann. He had a troponin of 2, consistent with a non-STEMI. Dr. Mann performed a cardiac catheterization in 01/2017 from the right femoral artery. He was found to have a 75% stenosis of the diagonal branch. The circumflex was acutely occluded with thrombus. The right coronary artery has 60% stenosis. Left ventriculography was not performed. He then had anticoagulation achieved with heparin. He had drug-eluting stent placed in the circumflex. He was started on Effient. He actually had repeat heart catheterization a nzlm-tfo-j-half later in 04/[address] Mann. This was performed from the right radial artery. The patient was having chest pain at that time. There was a 75% stenosis in the LAD. The circumflex was chronically occluded. The right coronary artery had 50% stenosis. Ejection fraction was 50%. He was given heparin and had a drug-eluting stent placed in the circumflex with reperfusion. He then had 3 drug-eluting stents placed in the circumflex. He was continued on Effient. The patient states he has actually done well since that time. Unfortunately, he has no medical insurance and does not see a doctor on a regular basis. He has not been seen here at [facility] since 04/2018. He stays fairly active. He last worked about 5 days ago. He woke up yesterday morning with some pain in his chest, felt short of breath. Denied any nausea or diaphoresis. His brother brought him to the Emergency Room and he was given nitroglycerin and pain resolved. He denied the pain being related to food. He has had no recent fever, bleeding, or cough. Denies exertional dyspnea, palpitations, or syncope. PAST MEDICAL HISTORY: He has had previous surgery on his leg. He fractured his mandible as a child. He had small bowel obstruction at [facility] a couple of years ago, requiring surgery. He has a history of hypertension and hyperlipidemia. MEDICATIONS: Include aspirin, Lipitor, carvedilol, lisinopril, and Effient. ALLERGIES: He has no known drug allergies. FAMILY HISTORY: [place] [address] CONSULTATION Name: VANGIEJIM E Room: [address] IN [facility]#: [id number] Admission: 01/20/19 Attend Phys: Rodolfo Cochran Discharge: Date of : 66 Report #: [id number] SOCIAL HISTORY: He is single, never been . He lives with his brother here in [place]. He works at [employer]. Smokes a pack of cigarettes a day. No significant alcohol. He does smoke marijuana. REVIEW OF SYSTEMS: He has had no history of stroke, asthma, peptic ulcer disease, liver disease, kidney disease, cancer, psychiatric illness, and chronic skin condition. PHYSICAL EXAMINATION: GENERAL: Revealed a middle-aged male, lying in bed. He appeared in no distress. VITAL SIGNS: He had a blood pressure 126/80 with a pulse of 80. He is afebrile. HEENT: He is anicteric. Conjunctivae pink. Mucous membranes moist. NECK: Veins nondistended. No carotid bruits. Neck supple. CHEST: Clear to auscultation. HEART: Regular rate and rhythm. ABDOMEN: Soft. EXTREMITIES: Had no edema. Dorsalis pedis pulse 1+ bilaterally. SKIN: Warm, dry. NEUROLOGIC: Nonfocal. His ECG showed a sinus rhythm with an incomplete right bundle-branch block, no significant ST or T-wave changes noted. His workup in the Emergency Room: He had a portable chest x-ray last night that showed normal heart size, clear lung arnett. His lab work last night: Sodium 141, creatinine 0.9, glucose 108. Liver function studies were normal. Troponin 0.06. BNP 543. In last April, his cholesterol was 153, triglycerides 47, HDL 57, LDL 87. White blood cell count 8.6 and hemoglobin 14.9. IMPRESSION AND RECOMMENDATIONS: 1. Chest pain. Possible unstable angina. Recommend repeat cardiac catheterization. 2. Coronary artery disease. Previous stenting. The patient has been on Effient and aspirin. 3. Hypertension. The patient is on a beta-alessandro and OLEGARIO inhibitor. 4. Hyperlipidemia. The patient is on a statin drug. 5. Tobacco abuse. <ELECTRONICALLY SIGNED> By: Jesse Nj MD, [facility] 01/22/19 1055 0912 0931David Pako Nj MD, FACC /nt
[2019-01-22 11:30] VITALS: BP 97/65
--- NOTE | 2019-01-22 13:14 | NUR ---
DISCHARGE ORDERS RECEIVED. PATIENT CONTINUES TO DENY CHEST PAIN, DIZZINESS OR ANY DISCOMFORT. GRAPHIC ILLUSTRATOR AND SALINE LOCK DC'D. ALL PERSONAL BELONINGS COLLECTED BY PATIENT AND RECEIVED FROM SECURITY KNIFE AND OTHER PERSONAL ITEMS RETURNED. EDUCATED ON DISCHARGE INSTRUCTIONS, VERBALIZED UNDERSTANDING HAVING NO QUESTIONS. GIVEN WRITTEN DISCHARGE INSTURCTIONS FOR REINFORCEMENT TEACHING. DC'D IN STABLE CONDITION TO HOME.
--- NOTE | 2019-01-23 12:27 | EKG ---
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1970 Requested By: Jesse Nj Order Number: [id number] Richie MD: Jesse Nj Measurements Intervals [place] Rate: 49 P: 73 NH: 145 QRS: 47 QRSD: 111 T: 38 QT: 474 QTc: 428 Interpretive Statements Sinus bradycardia Consider anterior infarct Compared to ECG 01/20/2019 19:51:17 Myocardial infarct finding now present Sinus rhythm no longer present ST (T wave) deviation no longer present Electronically Signed On 01-23-2019 12:26:48 CDT by Jesse Nj [email or web address] <ELECTRONICALLY SIGNED> By: Jesse Nj MD, [facility] 01/23/19 1226 0448 0448 Jesse Nj MD, [facility] /EPI
== END 2019-01-22 13:19 | disposition home or self-care (01) | DRG 287 ==
LOC: M.ERS 19:44 → M.TBA-ER 21:23 → M.2W 22:35
PROVIDERS: Emergency Medicine; Internal Medicine Cardiovascular Disease; ADMIT Internal Medicine
PROC: B2151ZZ Fluoroscopy of Left Heart using Low Osmolar Contrast (ICD-10-PCS; principal; 2019-01-21)
PROC: 4A023N7 Measurement of Cardiac Sampling and Pressure, Left Heart, Percutaneous Approach (ICD-10-PCS; principal; 2019-01-21)
PROC: B2111ZZ Fluoroscopy of Multiple Coronary Arteries using Low Osmolar Contrast (ICD-10-PCS; principal; 2019-01-21)
DX: I25.119 Atherosclerotic heart disease of native coronary artery with unspecified angina pectoris (principal); E78.00 Pure hypercholesterolemia, unspecified; I10 Essential (primary) hypertension; E78.5 Hyperlipidemia, unspecified; F17.210 Nicotine dependence, cigarettes, uncomplicated; I25.10 Atherosclerotic heart disease of native coronary artery without angina pectoris; Z79.1 Long term (current) use of non-steroidal anti-inflammatories (NSAID); I25.2 Old myocardial infarction; Z95.5 Presence of coronary angioplasty implant and graft; Z79.82 Long term (current) use of aspirin; Z79.899 Other long term (current) drug therapy; Z71.6 Tobacco abuse counseling

== ENCOUNTER 2019-04-15 22:04 | Observation (INO) | payer OTHER ==
[~2019-04-15] VITALS: Ht 185.4 cm; Wt 61.2 kg
[~2019-04-15 22:04] MED LIST changes: +APAP650 PO
[2019-04-15 22:07] VITALS: BP 113/71
[2019-04-15 22:55] LABS: ABSOLUTE BASOPHILS 0.1 thou/uL (0.0-0.2); ABSOLUTE EOSINOPHILS 0.2 thou/uL (0.0-0.7); ABSOLUTE LYMPHOCYTES 3.1 thou/uL (0.8-5.3); ABSOLUTE NEUTROPHILS 5.4 thou/uL (1.6-8.1); BASOPHILS 0.9 %; HEMATOCRIT 41.9 % (42.0-52.0); HEMOGLOBIN 14.6 gm/dL (14.0-18.0); LYMPHOCYTES 31.4 %; MCH 33.2 pg (26.0-34.0); MCHC 34.9 g/dL (28.0-37.0); MCV 95.1 fL (80.0-100.0); MONOCYTES 10.3 %; MPV 7.6 fl. (7.2-11.1); NUCLEATED RBCS 0 /100WBC; PLATELET COUNT* 200 thou/uL (150-400); POLYS 55.4 %; RBC 4.41 mil/uL (4.50-6.00); RDW-CV 13.6 % (10.5-14.5); WBC 9.8 thou/uL (4.0-11.0)
[2019-04-15 23:03] LABS: CALCIUM 9.4 mg/dL (8.5-10.1); CREATININE 0.9 mg/dL (0.6-1.3); POTASSIUM 3.6 mmol/L (3.5-5.1)
[2019-04-15 23:13] LABS: TOTAL BILIRUBIN 0.4 mg/dL (<0.1-1.0); TOTAL PROTEIN 7.6 g/dL (6.4-8.2)
[2019-04-16 00:17] LABS: APTT 26.1 Seconds (25.0-31.3); INR 1.1; PROTIME 11.4 Seconds (9.20-11.50)
[2019-04-16 01:20] VITALS: BP 129/85
[2019-04-16 02:00] VITALS: BP 113/71
[2019-04-16 07:45] VITALS: BP 100/65
[2019-04-16 11:22] VITALS: BP 100/65
[2019-04-16 11:27] VITALS: BP 100/65
--- NOTE | 2019-04-16 12:56 | NUR ---
PT IV REMOVED INTACT AT THIS TIME. PT VERBALIZED UNDERSTANDING TO DC INSTRUCTIONS AND THAT HE NEEDS TO FOLLOW UP WITH PCP AND CARDIOLOGY. NO RX PROVIDED AT THIS TIME. EKG COMPLETE AND PLACED IN CHART. PT TAKEN OUT VIA WC WITH HOSPITAL STAFF. WILL SIGN OFF AT THIS TIME
--- NOTE | 2019-04-16 13:05 | CON ---
[address] [address] CONSULTATION Name: JIM VENCES Room: [address] K[place] Brown#: [id number] Admission: 04/16/19 Attend Phys: Mady Wong Discharge: 04/16/19 Date of : 66 Report #: [id number] THIS REPORT FOR: //name// CC: KIRSTIE physician/PCP Melissa Grimaldo DATE OF SERVICE: 04/16/2019 CARDIOLOGY CONSULTATION HISTORY OF PRESENT ILLNESS: The patient is a 49-year-old male with complex coronary artery disease and prior percutaneous coronary interventions. Most recent catheterization in January of this year revealed total occlusion of the circumflex with collateralization to the distal circumflex. There were mild LAD stenosis in the right coronary artery, was nondominant. Yesterday, while working, he developed the chest pain, which was different from his prior ischemic pain. It seems exacerbated by lifting and moving and has persisted for greater than 24 hours. There were no electrocardiographic or enzymatic evidences of acute myocardial injury. The patient notes some dyspnea on exertion, but this is chronic. Risk factors for coronary artery disease include tobacco habituation, hypercholesterolemia, family history of coronary artery disease in grandparents. PAST MEDICAL HISTORY: Remarkable for the aforementioned heart disease. SOCIAL HISTORY: The patient is single. He works at [employer]. He does not drink, but smokes a pack per day. REVIEW OF SYSTEMS: Remarkable for the following: CARDIOVASCULAR: He has a history of coronary artery disease and presented with chest discomfort, which was different from his prior ischemic pain. EYES: He wears glasses. PHYSICAL EXAMINATION: GENERAL: Demonstrates a nondistressed middle-aged male. VITAL SIGNS: Blood pressure 130/70, pulse rate is 78, respirations are 18 per minute. NECK: Jugular venous pressure is normal. CHEST: Clear. CARDIAC: Reveals normal first and second heart sounds without rubs, murmurs or gallops. ABDOMEN: Soft. EXTREMITIES: Without edema with [place] [address] CONSULTATION Name: VANGIEJIM E Room: [address] Khang Brown#: [id number] Admission: 04/16/19 Attend Phys: Mady Wong Discharge: 04/16/19 Date of : 66 Report #: [id number] DIAGNOSTIC DATA: Rhythm strips on EKGs reviewed today, revealed no evidence for acute injury and cardiac enzymes are unremarkable. IMPRESSION: 1. Atypical chest pain. 2. Coronary artery disease. 3. Recent catheterization revealed chronic total occlusion of the circumflex with left to left collaterals filling the distal circumflex without significant left anterior descending disease with a nondominant right coronary artery. 4. Mild ischemic cardiomyopathy, ejection fraction 40-45%. 5. Tobacco habituation. RECOMMENDATIONS: 1. As his current chest pain seems atypical for ischemic pain that persisted at this point, I would consider utilization of nonsteroidal anti-inflammatory therapy. 2. If there is recurrent discomfort, Lexiscan Cardiolite could be undertaken. I would not recommend repeat catheterization after review of the recent study of 2-1/2 months ago given the current clinical data. <ELECTRONICALLY SIGNED> By: Hunter Mann MD, FACC 04/16/19 1305 1031 1245Hunter Mann MD, FACC /nt
--- NOTE | 2019-04-17 16:27 | EKG ---
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1970 Requested By: Ysabel Diaz Order Number: [id number] MD: Jesse Nj Measurements Intervals [place] Rate: 80 P: 87 NE: 144 QRS: 45 QRSD: 105 T: 56 QT: 378 QTc: 436 Interpretive Statements Sinus rhythm Biatrial enlargement RSR' in V1 or V2, probably normal variant ST elev, probable normal early repol pattern Compared to ECG 01/22/2019 04:48:11 Atrial abnormality now present RSR' in V1 or V2 now present Sinus bradycardia no longer present Myocardial infarct finding no longer present Electronically Signed On 04-17-2019 16:27:09 CDT by Jesse Nj [email or web address] <ELECTRONICALLY SIGNED> By: Jesse Nj MD, [facility] 04/17/19 1627 07 07 Jesse Nj MD, [facility] /EPI
--- NOTE | 2019-04-17 17:58 | EKG ---
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
== END 2019-04-16 12:59 | disposition home or self-care (01) ==
LOC: M.ERS 22:04 → M.2W 04-16 00:06 → M.TBA-ER 04-16 00:06 → M.2W 04-16 01:17
PROVIDERS: Personal Emergency Response Attendant; ADMIT Internal Medicine
DX: R07.89 Other chest pain (principal); I25.10 Atherosclerotic heart disease of native coronary artery without angina pectoris; E78.00 Pure hypercholesterolemia, unspecified; I25.5 Ischemic cardiomyopathy; F17.210 Nicotine dependence, cigarettes, uncomplicated; F12.90 Cannabis use, unspecified, uncomplicated; Z95.5 Presence of coronary angioplasty implant and graft; Z79.82 Long term (current) use of aspirin; Z79.899 Other long term (current) drug therapy; Z23 Encounter for immunization

== ENCOUNTER 2019-05-05 19:12 | Emergency (ER) | payer OTHER ==
[~2019-05-05] VITALS: Ht 182.9 cm; Wt 63.5 kg
[2019-05-05 20:46] VITALS: BP 124/72
== END 2019-05-05 20:46 | disposition home or self-care (01) ==
LOC: M.ERS 19:12
DX: S61.012A Laceration without foreign body of left thumb without damage to nail, initial encounter (principal); I25.10 Atherosclerotic heart disease of native coronary artery without angina pectoris; F17.210 Nicotine dependence, cigarettes, uncomplicated; Z88.0 Allergy status to penicillin; Z95.5 Presence of coronary angioplasty implant and graft; W26.8XXA Contact with other sharp object(s), not elsewhere classified, initial encounter; Y93.89 Activity, other specified; Y92.89 Other specified places as the place of occurrence of the external cause; Y99.8 Other external cause status

== ENCOUNTER 2020-12-20 12:31 | Emergency (ER) | payer OTHER ==
[~2020-12-20] VITALS: Ht 185.4 cm; Wt 60.3 kg
[2020-12-20] MEDS ORDERED: LISINOPRIL5 MG PO (12:45)
[2020-12-20] MEDS ORDERED: CARVEDILOL3.125 MG PO (12:46)
[2020-12-20 13:17] LABS: ABSOLUTE BASOPHILS 0.1 thou/uL (0.0-0.2); ABSOLUTE EOSINOPHILS 0.5 thou/uL (0.0-0.7); ABSOLUTE LYMPHOCYTES 3.5 thou/uL (0.8-5.3); ABSOLUTE MONOCYTES 0.8 thou/uL (0.0-1.2); ABSOLUTE NEUTROPHILS 3.9 thou/uL (1.6-8.1); BASOPHILS 0.8 %; EOSINOPHILS 5.8 %; HEMATOCRIT 42.5 % (42.0-52.0); HEMOGLOBIN 14.9 gm/dL (14.0-18.0); LYMPHOCYTES 39.3 %; MCH 33.5 pg (26.0-34.0); MCV 95.8 fL (80.0-100.0); MONOCYTES 9.5 %; MPV 8.1 fl. (7.2-11.1); NUCLEATED RBCS 0 /100WBC; PLATELET COUNT* 214 thou/uL (150-400); POLYS 44.6 %; RBC 4.44 mil/uL (4.50-6.00); WBC 8.8 thou/uL (4.0-11.0)
[2020-12-20 13:21] LABS: CALCIUM 9.4 mg/dL (8.5-10.1); CREATININE 0.9 mg/dL (0.6-1.3); POTASSIUM 3.9 mmol/L (3.5-5.1)
[2020-12-20 13:32] LABS: ALBUMIN 4.2 g/dL (3.4-5.0); TOTAL BILIRUBIN 0.5 mg/dL (<0.1-1.0); TOTAL PROTEIN 8.1 g/dL (6.4-8.2)
[2020-12-20] MEDS ORDERED: HYDROCODON-ACE1 EAC7 PO (13:41)
[2020-12-20 13:50] VITALS: BP 133/85
--- NOTE | 2020-12-20 15:58 | EKG ---
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1970 Requested By: Puma Patricio Order Number: [id number] MD: Jesse Nj Measurements Intervals [place] Rate: 65 P: 84 MS: 146 QRS: 22 QRSD: 117 T: 30 QT: 407 QTc: 424 Interpretive Statements Sinus rhythm Nonspecific intraventricular conduction delay ST elev, probable normal early repol pattern Compared to ECG 04/16/2019 12:12:56 no change Electronically Signed On 12-20-2020 15:58:33 CDT by Jesse Nj [email or web address] <ELECTRONICALLY SIGNED> By: Jesse Nj MD, [facility] 12/20/20 1558 1237 1237 Jesse Nj MD, [facility] /EPI
== END 2020-12-20 13:50 | disposition home or self-care (01) ==
LOC: M.ERS 12:31
PROVIDERS: Emergency Medicine Emergency Medical Services
DX: R07.89 Other chest pain (principal); I25.10 Atherosclerotic heart disease of native coronary artery without angina pectoris; F17.210 Nicotine dependence, cigarettes, uncomplicated; Z95.5 Presence of coronary angioplasty implant and graft

== ENCOUNTER 2021-07-17 08:28 | Emergency (ER) | payer OTHER, MEDICAID ==
[~2021-07-17] VITALS: Ht 185.4 cm; Wt 61.2 kg
[~2021-07-17 08:28] MED LIST changes: +HYDROCODON-ACE1 EAC7 PO; +LISINOPRIL5 MG PO
--- NOTE | 2021-07-17 11:20 | EKG ---
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: [facility] : 1970 Requested By: Roberto Shah Order Number: [id number] MD: Hunter Mann Measurements Intervals [place] Rate: 58 P: 76 MD: 151 QRS: 61 QRSD: 119 T: 62 QT: 431 QTc: 424 Interpretive Statements Sinus rhythm Nonspecific intraventricular conduction delay ST elev, probable normal early repol pattern Compared to ECG 12/20/2020 12:37:33 No significant changes Electronically Signed On 07-17-2021 11:20:43 HOME HEALTH AIDE CAREGIVER by Hunter Mann [email or web address] <ELECTRONICALLY SIGNED> By: Hunter Mann MD, [facility] 07/17/21 1120 1044 1044 Hunter Mann MD, [facility] /EPI
[2021-07-17 13:52] LABS: ABSOLUTE BASOPHILS 0.1 thou/uL (0.0-0.2); ABSOLUTE EOSINOPHILS 0.3 thou/uL (0.0-0.7); ABSOLUTE LYMPHOCYTES 2.8 thou/uL (0.8-5.3); ABSOLUTE MONOCYTES 0.8 thou/uL (0.0-1.2); ABSOLUTE NEUTROPHILS 4.9 thou/uL (1.6-8.1); BASOPHILS 0.6 %; EOSINOPHILS 3.8 %; HEMOGLOBIN 14.5 gm/dL (14.0-18.0); LYMPHOCYTES 31.7 %; MCH 32.3 pg (26.0-34.0); MCHC 33.9 g/dL (28.0-37.0); MCV 95.5 fL (80.0-100.0); MONOCYTES 8.9 %; MPV 8.4 fl. (7.2-11.1); NUCLEATED RBCS 0 /100WBC; PLATELET COUNT* 200 thou/uL (150-400); RDW-CV 13.6 % (10.5-14.5); WBC 8.9 thou/uL (4.0-11.0)
[2021-07-17 13:56] LABS: CALCIUM 8.6 mg/dL (8.5-10.1); CREATININE 0.8 mg/dL (0.6-1.3); POTASSIUM 3.9 mmol/L (3.5-5.1)
[2021-07-17 14:01] LABS: TOTAL BILIRUBIN 0.4 mg/dL (<0.1-1.0); TOTAL PROTEIN 7.6 g/dL (6.4-8.2)
[2021-07-17 14:28] VITALS: BP 115/71
== END 2021-07-17 14:29 | disposition home or self-care (01) ==
LOC: M.ERS 08:28
PROVIDERS: Physician Assistant
DX: M79.604 Pain in right leg (principal); I25.10 Atherosclerotic heart disease of native coronary artery without angina pectoris; F17.210 Nicotine dependence, cigarettes, uncomplicated; Z98.890 Other specified postprocedural states; Z79.82 Long term (current) use of aspirin; Z79.899 Other long term (current) drug therapy